=== PATIENT | female | born 1960 | race Caucasian/White ===

== ENCOUNTER → 2020-05-20 | Outpatient (CLI) | payer OTHER ==
[~2020-05-20] MED LIST: AUGMENTIN 875875 MG PO; BACTRIM DS TAB1 EACH PO; VICODIN 5-5001 EACH PO
== END ==
LOC: M.CT 05-18 11:00
PROVIDERS: ATTEND Internal Medicine Gastroenterology
DX: K57.30 Diverticulosis of large intestine without perforation or abscess without bleeding (principal); R19.7 Diarrhea, unspecified; R63.4 Abnormal weight loss; Z90.12 Acquired absence of left breast and nipple; Z90.49 Acquired absence of other specified parts of digestive tract; Z90.89 Acquired absence of other organs